=== PATIENT | female | born 1965 ===

== ENCOUNTER 2023-05-29 13:27 | Outpatient (REF) | payer SELFPAY | END 2023-05-29 13:28 | disposition home or self-care (01) | LOC: HO.LNP 13:27 | PROVIDERS: Visit Provider Nurse Practitioner Family | DX: R39.15 Urgency of urination (principal) | CPT/HCPCS: 87086; 87088; 87186 ==

== ENCOUNTER 2023-09-25 11:34 | Outpatient (REF) | payer SELFPAY | END 2023-09-25 11:35 | disposition home or self-care (01) | LOC: HO.LAB 11:34 | PROVIDERS: Visit Provider Urology | DX: R39.15 Urgency of urination (principal) | CPT/HCPCS: 87086 ==

== ENCOUNTER 2024-02-17 07:14 | Outpatient (REF) | payer SELFPAY | END 2024-02-17 07:15 | disposition home or self-care (01) | LOC: HO.LNP 07:14 | PROVIDERS: Visit Provider Nurse Practitioner Family | DX: R39.15 Urgency of urination (principal) | CPT/HCPCS: 87086 ==

== ENCOUNTER 2024-03-25 09:52 | Outpatient (REF) | payer OTHER, SELFPAY | END 2024-03-25 09:53 | disposition home or self-care (01) | LOC: HO.HOSX 09:52 | PROVIDERS: Visit Provider Orthopaedic Surgery | DX: M25.562 Pain in left knee (principal); M25.561 Pain in right knee | CPT/HCPCS: 73562 ==

== ENCOUNTER 2024-03-25 11:35 | Outpatient (AMB) | payer OTHER, SELFPAY ==
--- NOTE | 2024-03-25 11:46 | A.OFFVIS_ITS ---
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 She describes her pains as sharp in nature. The patient has increased pain with just standing or walking. She denies any locking or giving way. She has tried Tylenol and anti-inflammatory medicines which gave her minimal relief. The patient states that she has had 2 cortisone injections given into both of her knees in the past. The most recent set of injections gave her minimal relief. She has not had a viscosupplementation injection. She wishes to hold off on surgery if at all possible. She has failed the last 3 months of conservative treatment which have consisted of a home exercise program, topical creams, Tylenol and anti- inflammatory medicines. At this point the patient's bilateral knee pains are interfering with her activities of daily living and her ability to sleep well through the night. Allergies No Known Allergies Allergy (Verified 03/25/24 11:47) Medication List - Last Reconciled 03/25/24 by Servando Singer MD tadalafil 5 mg PO DAILY 90 days Physical Exam Const Other: Well-nourished well-developed very friendly female awake alert and oriented x3 in no acute distress Extrem Other: Bilateral knee examination shows minimal effusions, mild crepitus with range of motion, pain with range of motion, range of motion from full extension to 120 degrees of flexion, no instability Results Reviewed Results Reviewed: X-rays of the patient's bilateral knees taken today show mild diffuse joint space narrowing most significant in the patellofemoral joint, subchondral sclerosis, no acute bony abnormalities Assessment & Plan Assessment & Plan (1) Osteoarthritis of left knee: Code(s): M17.12 - Unilateral primary osteoarthritis, left knee Category: Medical (2) Osteoarthritis of right knee: Code(s): M17.11 - Unilateral primary osteoarthritis, right knee Category: Medical Plan 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 I had a lengthy discussion with the patient regarding the treatment options. She wishes to hold off on surgery for as long as possible. I agree with this plan. I will see whether or not her insurance company will cover a viscosupplem entation injection, such as Durolane, for both of her knees. I will see her back once the injections are available. She will contact me prior to that time should any questions or concerns arise. I spent 20 minutes in reviewing the patient's records and imaging studies, seeing the patient and documenting in the medical record. Orders: Orders XR knee LT 3V Today M25.562 - Pain in left knee XR knee RT 3V Today M25.561 - Pain in right knee Medications: Discontinued ciprofloxacin HCl Discontinued Reason: Patient no longer taking 500 mg PO Q12H 7 days 14 tabs 0RF C61 - Malignant neoplasm of prostate, N12 - Tubulo-interstitial nephritis, not specified as acute or chronic Coding Level of Care Code New Pt Level 3 (61954) Complex EM visit Add On G2211 Diagnoses Osteoarthritis of left knee M17.12 Osteoarthritis of right knee M17.11
== END 2024-03-25 11:57 | disposition home or self-care (01) ==
LOC: HO.HOS 11:36
PROVIDERS: Visit Provider Orthopaedic Surgery
DX: M17.0 Bilateral primary osteoarthritis of knee (principal)
CPT/HCPCS: 99203

== ENCOUNTER 2024-04-08 12:36 | Outpatient (AMB) | payer OTHER, SELFPAY ==
--- NOTE | 2024-04-08 12:41 | MHC.OFFVIS ---
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 She describes her pains as sharp in nature. The patient has increased pain with just standing or walking. She denies any locking or giving way. She has tried Tylenol and anti-inflammatory medicines which gave her minimal relief. The patient states that she has had 2 cortisone injections given into both of her knees in the past. The most recent set of injections gave her minimal relief. She has not had a viscosupplementation injection. She wishes to hold off on surgery if at all possible. Allergies No Known Allergies Allergy (Verified 04/08/24 12:43) Medication List - Last Reconciled 04/08/24 by Servando Singer MD tadalafil 5 mg PO DAILY 90 days Physical Exam Vital Signs: BMI result Body Mass Index 27.0 Extrem Other: Bilateral knee examination shows minimal effusions, palpable crepitus with range of motion, no instability Office Procedures AMB Joint Injection/Aspiration Joint Injection/Aspiration Primary Site: left knee Prep: site was prepped using aseptic technique Injected: 60 mg of (Durolane viscosupplementation) and 1% plain lidocaine Procedure: The patient tolerated the procedure well Coding 31312 - Large joint Procedure code (CPT) selection complete AMB Joint Injection/Aspiration Joint Injection/Aspiration Primary Site: right knee Prep: site was prepped using aseptic technique Injected: 60 mg of (Durolane viscosupplementation) and 1% plain lidocaine Procedure: The patient tolerated the procedure well Coding 68316 - Large joint Procedure code (CPT) selection complete Assessment & Plan Assessment & Plan (1) Osteoarthritis of left knee: Code(s): M17.12 - Unilateral primary osteoarthritis, left knee Category: Medical (2) Osteoarthritis of right knee: Code(s): M17.11 - Unilateral primary osteoarthritis, right knee Category: Medical Plan Sravan presents with bilateral knee pains due to osteoarthritis. The risks and benefits of bilateral knee Durolane viscosupplementation injections were discussed at length with the patient. The patient wished to proceed. She tolerated the injections well. She will follow up with me on an as-needed basis should her symptoms not plateau at an unacceptable level over the next few months. I spent 22 minutes in reviewing the patient's records and imaging studies, seeing the patient and documenting in the medical record. Orders: Orders AMB Joint Injection/Aspiration 04/08/24 M17.12 - Unilateral primary osteoarthritis, left knee AMB Joint Injection/Aspiration 04/08/24 M17.11 - Unilateral primary osteoarthritis, right knee Coding Level of Care Code Est Pt Level 3 (31487) Complex EM visit Add On G2211 Diagnoses Osteoarthritis of left knee M17.12 Osteoarthritis of right knee M17.11 CPT Codes Coding - 99140 Large joint: 62227 - Large joint ([id number]) Coding - 59421 Large joint: 75596 - Large joint ([id number])
[2024-04-08 12:43] VITALS: BMI 27.0
== END 2024-04-08 13:13 | disposition home or self-care (01) ==
PROVIDERS: Visit Provider Orthopaedic Surgery
DX: M17.0 Bilateral primary osteoarthritis of knee (principal)
CPT/HCPCS: 20610; 99213

== ENCOUNTER → 2024-04-08 12:36 | Outpatient (BNVA) | payer OTHER, SELFPAY | PROVIDERS: Visit Provider Orthopaedic Surgery | DX: M17.0 Bilateral primary osteoarthritis of knee (principal) | CPT/HCPCS: 20610; J2003; J7318 ==